=== PATIENT | male | born 1970 ===

== ENCOUNTER 2016-09-06 04:14 | Inpatient (IN) | payer MEDICAID ==
[2016-09-06] MEDS ORDERED: Sodium Chloride 0.9% 1,000 ML IV STA ×2 (04:49→08:39)
--- NOTE | 2016-09-06 05:04 | ED PDOC ---
HPI: Psych/Substance Abuse Time Seen by Provider: 09/06/16 04:27 Chief Complaint (Nursing): Chest Pain Chief Complaint (Provider): overdose History Per: Patient History/Exam Limitations: no limitations Onset/Duration Of Symptoms: Mins Current Symptoms Are (Timing): Still Present Additional Complaint(s): 45yo male with PMHx including psych issues presents to the ED for evaluation of drug overdose. Patient reports taking 4-5 cymbalta, a handful of eric aspirin ( believes was about 10) in the past hour. Patient states this was in reaction to having a fight with his girlfriend. Currently denies SI or HI. Admits to taking 2 gabapentin and 1 percocet earlier today. Denies any other drug or alcohol use. States he is currently having palpitations. Past Medical History Reviewed: Historical Data, Nursing Documentation, Vital Signs Vital Signs: Last Vital Signs Temp 98 F 09/06/16 04:20 Pulse 106 H 09/06/16 04:20 Resp 17 09/06/16 04:20 BP 137/74 09/06/16 04:20 Pulse Ox 100 09/06/16 04:20 - Medical History PMH: Depression Denies: Chronic Kidney Disease - Surgical History Surgical History: No Surg Hx - Family History Family History: States: No Known Family Hx - Immunization History Hx Tetanus Toxoid Vaccination: No Hx Influenza Vaccination: No Hx Pneumococcal Vaccination: No - Home Medications Home Medications: Ambulatory Orders Medication Instructions Recorded No Known Home Med 09/06/16 - Allergies Allergies/Adverse Reactions: Allergies Allergy/AdvReac Type Severity Reaction Status Date / Time No Known Allergies Allergy Verified 04/30/15 12:56 Review of Systems ROS Statement: Except As Marked, All Systems Reviewed And Found Negative Cardiovascular: Positive for: Palpitations Psych: Positive for: Other (no HI ). Negative for: Suicidal ideation Physical Exam - Reviewed Nursing Documentation Reviewed: Yes Vital Signs Reviewed: Yes - Physical Exam Appears: Positive for: Well, No Acute Distress (appears anxious ) Head Exam: Positive for: ATRAUMATIC, NORMAL INSPECTION, NORMOCEPHALIC Skin: Positive for: Normal Color, Warm, Dry Eye Exam: Positive for: Normal appearance, EOMI, PERRL ENT: Positive for: Normal ENT Inspection Neck: Positive for: Normal, Painless ROM, Supple Cardiovascular/Chest: Positive for: Regular Rate, Rhythm. Negative for: Murmur , Tachycardia Respiratory: Positive for: Normal Breath Sounds. Negative for: Wheezing, Respiratory Distress Gastrointestinal/Abdominal: Positive for: Normal Exam, Bowel Sounds, Soft. Negative for: Tenderness Back: Positive for: Normal Inspection Extremity: Positive for: Normal ROM. Negative for: Deformity, Swelling Neurologic/Psych: Positive for: Alert, Oriented - Laboratory Results Result Diagrams: 09/06/16 05:02 09/06/16 05:02 - ECG O2 Sat by Pulse Oximetry: 100 Pulse Ox Interpretation: Normal (RA) Medical Decision Making Medical Decision Makin: Impression: drug overdose Plan: Labs CXR IVF ED obs reassess 0700 will sign out to day team pending repeat labs and assessment Scribe Attestation: Documented by Diya López acting as a scribe for Donald Brownlee MD. Provider Scribe Attestation: All medical record entries made by the Scribe were at my direction and personally dictated by me. I have reviewed the chart and agree that the record accurately reflects my personal performance of the history, physical exam, medical decision making, and the department course for this patient. I have also personally directed, reviewed, and agree with the discharge instructions and disposition. Disposition - Clinical Impression Clinical Impression: Drug overdose, Salicylate intoxication - Disposition Disposition: Transfer of Care Disposition Time: 07:00 Condition: GUARDED Patient Signed Over To: Chasity Garrido Handoff Comments: reassessment, poison control recommendations, labs
[2016-09-06 05:07] LABS: BASO # 0.2 K/uL (0.0-0.2); BASO % 1.4 % (0.0-2.0); EOS # 0.1 K/uL (0.0-0.7); EOS % 0.3 % (0.0-4.0); HEMATOCRIT 47.7 % (35.0-51.0); LYMPH # 2.7 K/uL (1.0-4.3); LYMPH % 15.3 % (20.0-40.0); MEAN CELL VOLUME 95.8 fl (80.0-94.0); MEAN CORPUSCULAR HEMOGLOBIN 31.3 pg (27.0-31.0); MEAN CORPUSCULAR HGB CONC 32.7 g/dL (33.0-37.0); MEAN PLATELET VOLUME 10.2 fl (7.2-11.7); MONO # 1.2 K/uL (0.0-0.8); MONO % 6.8 % (0.0-10.0); NEUT # 13.3 K/uL (1.8-7.0); NEUT % 76.2 % (50.0-75.0); NRBC % 0.1 % (0.0-0.0); RED CELL DISTRIBUTION WIDTH 13.7 % (11.5-14.5); WHITE BLOOD COUNT 17.4 K/uL (4.8-10.8)
[2016-09-06 06:01] LABS: RBC URINE 1 /hpf (0-3); URINE BACTERIA RARE (<OCC); URINE BILIRUBIN NEGATIVE (NEGATIVE); URINE BLOOD NEGATIVE (NEGATIVE); URINE COLOR YELLOW (YELLOW); URINE GLUCOSE (UA) NEG (Normal); URINE KETONE NEGATIVE (NEGATIVE); URINE LEUKOCYTE ESTERASE NEG Leu/uL (Negative); URINE PROTEIN NEGATIVE (NEGATIVE); URINE UROBILINOGEN 0.2-1.0 mg/dL (0.2-1.0); WBC URINE 1 /hpf (0-5)
[2016-09-06 06:27] LABS: ABG ALLEN TEST YES; ARTERIAL BLOOD GAS HCO3 24.3 mmol/L (21-28); ARTERIAL BLOOD GAS PH 7.41 (7.35-7.45); ARTERIAL BLOOD GAS PO2 100 mm/Hg (80-100)
--- NOTE | 2016-09-06 07:32 | ED PDOC ---
- Laboratory Results Result Diagrams: 09/06/16 05:02 09/06/16 05:02 - ECG O2 Sat by Pulse Oximetry: 100 Medical Decision Making Medical Decision Makin signed over to me by Diya Brownlee MD pending repeat labs, reassessment. Patient on 1:1 observation. 0853: PATIENT IS AWAKE AND ALERT. HE IS ACTIVELY ENGAGED WITH THIS PHONE. PATIENT HAS PERSISTENTLY ELEVATED SALICYLATE LEVEL. POISON CONTROL FOLLOWING THE CASE AND MAKING RECOMMENDATIONS ON MANAGEMENT. D/W DR. LOPEZ. TELEMETRY MONITORING SUFFICIENT AT PRESENT. D/W DR. ROMAN FOR MEDICAL SERVICE ADMISSION. Disposition Doctor Will See Patient In The: Hospital - Clinical Impression Clinical Impression: Drug overdose, Salicylate intoxication - POA Present On Arrival: None - Disposition Disposition: Admitted as In-Patient Disposition Time: 08:55 Condition: GUARDED ED OBSERVATION Date of observation admission: 09/06/16 Time of observation admission: 04:27 Additional Comments - Additional Comments Additional Comments: Scribe Attestation: Documented by Dario Brooks acting as a scribe for Chasity Garrido MD. Provider Scribe Attestation: All medical record entries made by the Scribe were at my direction and personally dictated by me. I have reviewed the chart and agree that the record accurately reflects my personal performance of the history, physical exam, medical decision making, and the department course for this patient. I have also personally directed, reviewed, and agree with the discharge instructions and disposition.
[2016-09-06 07:47] LABS: ALCOHOL SERUM < 10 mg/dl (0-10); BLOOD UREA NITROGEN 6 mg/dl (9-20); CALCIUM 10.4 mg/dL (8.4-10.2); CARBON DIOXIDE 24 mmol/L (22-30); CHLORIDE 102 mmol/L (98-107); GFR AFRICAN-AMERICAN > 60; GLUCOSE,RANDOM 103 mg/dL (75-110); SODIUM 146 mmol/l (132-148)
--- NOTE | 2016-09-06 08:48 | RAD ---
PROCEDURE: CHEST RADIOGRAPH, 1 VIEW portable study 04:35. HISTORY: overdose COMPARISON: None available. FINDINGS: LUNGS: Clear. PLEURA: No pneumothorax or pleural fluid seen. CARDIOVASCULAR: Normal. OSSEOUS STRUCTURES: Mild scoliosis. No acute osseous findings. VISUALIZED UPPER ABDOMEN: Normal. OTHER FINDINGS: None. IMPRESSION: No active disease.
[2016-09-06 09:13] LABS: ALT/SGPT 28 U/L (21-72); AST/SGOT 33 U/L (17-59)
--- NOTE | 2016-09-06 13:28 | CP.PCM.HP ---
History of Present Illness - History of Present Illness History of Present Illness: 45Y/O M brought to ER [facility] by EMS due to Drug Overdose on DOA with no relief. Pt was brought to hospital and on evaluation was found with overdose of Salicylate, Cocaine, worsening symptom of Chest pressure L side, midsternal, non radiated associated to drug overdose, abdominal pain/nausea also related to the overdose. Aggravated factor: Stress. As per Pt, he took Gabapenting and 1 Percocet in AM, after fight , he took a handful of ASA and 4-5 Cymbalta 2nd to a fight reaction with his girlfriend, but denied SI or HI. Pt denied: Fever, chills, vomiting, diarrhea,SOB, cough, urinary symptoms, syncope, LOC, sick contact, recent travel. MHx: Depression, no other chronic PMHx. CXR: No active disease. Present on Admission - Present on Admission Any Indicators Present on Admission: No Review of Systems - Constitutional Constitutional: Other (Negative) - EENT Eyes: Other (negative) Ears: Other (negative) Nose/Mouth/Throat: Other (negative) - Cardiovascular Cardiovascular: Other (negative) - Respiratory Respiratory: Other (negative) - Gastrointestinal Gastrointestinal: Abdominal Pain, Nausea - Genitourinary Genitourinary: Other (negative) - Musculoskeletal Musculoskeletal: Other (negative) - Integumentary Integumentary: Other (negative) - Neurological Neurological: Other (negative) - Psychiatric Psychiatric: Depression - Endocrine Endocrine: Other (negative) - Hematologic/Lymphatic Hematologic: Other (negative) Past Patient History - Past Medical History & Family History Pertinent Family History: Unknown - Past Social History Smoking Status: Heavy Smoker > 10 Cigarettes Daily Alcohol: Social Drugs: Cocaine Home Situation {Lives}: With Family - CARDIAC Hx Cardiac Disorders: No - PULMONARY Hx Respiratory Disorders: No - NEUROLOGICAL Hx Neurological Disorder: No - HEENT Hx HEENT Problems: No - RENAL Hx Chronic Kidney Disease: No - ENDOCRINE/METABOLIC Hx Endocrine Disorders: No - HEMATOLOGICAL/ONCOLOGICAL Hx Blood Disorders: No - INTEGUMENTARY Hx Dermatological Problems: No - MUSCULOSKELETAL/RHEUMATOLOGICAL Hx Musculoskeletal Disorders: No - GASTROINTESTINAL Hx Gastrointestinal Disorders: No - GENITOURINARY/GYNECOLOGICAL Hx Genitourinary Disorders: No - PSYCHIATRIC Hx Psychophysiologic Disorder: Yes Hx Depression: Yes - SURGICAL HISTORY Hx Surgeries: Yes Other/Comment: 2005 gurmeet plate insertion left femur - ANESTHESIA Hx Anesthesia: Yes Hx Anesthesia Reactions: No Hx Malignant Hyperthermia: No Meds Allergies/Adverse Reactions: Allergies Allergy/AdvReac Type Severity Reaction Status Date / Time No Known Allergies Allergy Verified 04/30/15 12:56 Physical Exam - Constitutional Appears: No Acute Distress - Head Exam Head Exam: NORMAL INSPECTION - Eye Exam Eye Exam: PERRL - ENT Exam ENT Exam: Normal Oropharynx - Neck Exam Neck exam: Positive for: Normal Inspection - Respiratory Exam Respiratory Exam: NORMAL BREATHING PATTERN - Cardiovascular Exam Cardiovascular Exam: REGULAR RHYTHM - GI/Abdominal Exam GI & Abdominal Exam: Normal Bowel Sounds, Soft - Extremities Exam Extremities exam: Positive for: normal inspection - Back Exam Back exam: NORMAL INSPECTION - Neurological Exam Neurological exam: Alert, Oriented x3 Additional comments: No motor sensory deficit - Skin Skin Exam: Warm Results - Vital Signs Recent Vital Signs: Last Vital Signs Temp 97.7 F 09/06/16 12:20 Pulse 80 09/06/16 12:20 Resp 18 09/06/16 12:20 BP 127/82 09/06/16 12:20 Pulse Ox 99 09/06/16 12:20 reviewed J.P. - Labs Result Diagrams: 09/07/16 04:10 09/07/16 04:10 Labs: Laboratory Results - last 24 hr 09/06/16 10:14 Salicylates 38.9 H* reviewed J.P. - Imaging and Cardiology Chest x-ray Status: Report reviewed by me (Kassidy) Assessment & Plan (1) Drug overdose Status: Acute Priority: High (2) Salicylate intoxication Status: Acute Priority: High - Assessment and Plan (Free Text) Plan: Blood C-S, continue Fluid IV, on 1:1 observation, Psychiatric consult. - Date & Time Date: 09/06/16 Time: 12:00
[2016-09-06] MEDS ORDERED: Pneumococcal 23-Valent Vaccine IM ONE (14:20)
[2016-09-06 14:41] LABS: THYROID STIMULATING HORMONE 0.03 mIU/ML (0.46-4.68)
[2016-09-06] MEDS: Sodium Chloride 0.9% 1,000 ML IV SCH ×2 (16:55→22:49)
[2016-09-07 05:28] LABS: HEMATOCRIT 40.5 % (35.0-51.0); MEAN CELL VOLUME 96.5 fl (80.0-94.0); MEAN CORPUSCULAR HGB CONC 32.2 g/dL (33.0-37.0); WHITE BLOOD COUNT 10.3 K/uL (4.8-10.8)
[2016-09-07 05:47] LABS: BLOOD UREA NITROGEN 13 mg/dl (9-20); CALCIUM 8.7 mg/dL (8.4-10.2); CARBON DIOXIDE 23 mmol/L (22-30); CHLORIDE 109 mmol/L (98-107); GFR AFRICAN-AMERICAN > 60; GLUCOSE,RANDOM 83 mg/dL (75-110); POTASSIUM 3.8 MMOL/L (3.6-5.0); SODIUM 145 mmol/l (132-148)
[2016-09-07] MEDS: Sodium Chloride 0.9% 1,000 ML IV SCH (08:42)
--- NOTE | 2016-09-07 12:40 | CP.PCM.PN ---
Subjective - Date & Time of Evaluation Date of Evaluation: 09/07/16 Time of Evaluation: 11:00 - Subjective Subjective: F/U Drug Overdose. Pt awake, no A/D noted, Ox3, calm, on 1:1. Objective - Vital Signs/Intake and Output Vital Signs (last 24 hours): Temp Pulse Resp BP Pulse Ox 98.2 F 53 L 18 136/77 98 09/07/16 08:00 09/07/16 09:00 09/07/16 08:00 09/07/16 08:00 09/07/16 08:00 - Labs Labs: 09/07/16 04:10 09/07/16 04:10 - Constitutional Appears: No Acute Distress - Head Exam Head Exam: NORMAL INSPECTION - Eye Exam Eye Exam: PERRL - ENT Exam ENT Exam: Normal Oropharynx - Neck Exam Neck Exam: Normal Inspection - Respiratory Exam Respiratory Exam: NORMAL BREATHING PATTERN - Cardiovascular Exam Cardiovascular Exam: REGULAR RHYTHM - GI/Abdominal Exam GI & Abdominal Exam: Soft, Normal Bowel Sounds - Extremities Exam Extremities Exam: Normal Inspection - Back Exam Back Exam: NORMAL INSPECTION - Neurological Exam Neurological Exam: Alert, Oriented x3. absent: Motor Sensory Deficit - Psychiatric Exam Additional comments: Calm - Skin Skin Exam: Warm Assessment and Plan (1) Drug overdose Status: Acute (2) Salicylate intoxication Status: Acute - Assessment and Plan (Free Text) Plan: Continue IV fluid.
--- NOTE | 2016-09-07 14:25 | CP.PCM.CON ---
History of Present Illness - History of Present Illness History of Present Illness: Psychiatry consult was called for evaluation of overdose CC: "I took some pills" HPI: 45 yo male w/ no h/o formal psychiatric treatment, presents s/p drug overdose on salicylate, cocaine, cymbalta (not his medication), gabapentin and percocet after having an argument with his gf. Patient is now denying that it was a suicide attempt, denying depression/anxiety/azucena/hallucinations/delusions /paranoia. As per staff, his gf reported that this is not his first overdose. ROS: NO Fever, chills, vomiting, diarrhea,SOB, cough, urinary symptoms, syncope , LOC, sick contact, recent travel. PPHX: No h/o hospitalizations or current treatment. He used Klonopin a few years ago, but this was not prescribed by a psychiatrist. Patient denies previous suicide attempts. MHx: No medical problems CXR: No active disease. 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 Denied substance/etoh abuse to freelance writer. (Utox + cocaine) Lives w/ gf. MSE: A + O x3, no acute distress, poor eye contact, irritable towards freelance writer, mood "fine". affect- labile, irritable, angry. thought process-linear/coherent. speech normal. NO delusions/paranoia/hallucinations. I/J- poor. Impression: 45 yo male who denies past psychiatric history, presents s/p overdose, likely suicide attempt, although patient now refuses it was. Patient has mood disorder, unspecified r/o substance induced mood disorder, cocaine use disorder. Patient would benefit from inpatient psychiatric admission for treatment and safety but is not agreeable at this time. Recommendations: -Screen for involuntary admission as the patient is not agreeable to voluntary admission. -Continue 1:1 -Call w/ further questions, Dr. Burrell [phone] Past Patient History - Past Medical History & Family History Past Medical History?: Yes - Past Social History Smoking Status: Heavy Smoker > 10 Cigarettes Daily Alcohol: Social Drugs: Cocaine Home Situation {Lives}: With Family - CARDIAC Hx Cardiac Disorders: No - PULMONARY Hx Respiratory Disorders: No - NEUROLOGICAL Hx Neurological Disorder: No - HEENT Hx HEENT Problems: No - RENAL Hx Chronic Kidney Disease: No - ENDOCRINE/METABOLIC Hx Endocrine Disorders: No - HEMATOLOGICAL/ONCOLOGICAL Hx Blood Disorders: No - INTEGUMENTARY Hx Dermatological Problems: No - MUSCULOSKELETAL/RHEUMATOLOGICAL Hx Musculoskeletal Disorders: No - GASTROINTESTINAL Hx Gastrointestinal Disorders: No - GENITOURINARY/GYNECOLOGICAL Hx Genitourinary Disorders: No - PSYCHIATRIC Hx Depression: Yes - SURGICAL HISTORY Hx Surgeries: Yes Other/Comment: 2006 gurmeet plate insertion left femur - ANESTHESIA Hx Anesthesia: Yes Hx Anesthesia Reactions: No Hx Malignant Hyperthermia: No Meds Allergies/Adverse Reactions: Allergies Allergy/AdvReac Type Severity Reaction Status Date / Time No Known Allergies Allergy Verified 04/30/15 12:56 Results - Vital Signs Recent Vital Signs: Last Vital Signs Temp 97.6 F 09/07/16 12:00 Pulse 62 09/07/16 12:00 Resp 18 09/07/16 12:00 BP 132/81 09/07/16 12:00 Pulse Ox 96 09/07/16 12:00 - Labs Result Diagrams: 09/07/16 04:10 09/07/16 04:10 Labs: Laboratory Results - last 24 hr 09/06/16 09/06/16 09/07/16 13:45 19:20 04:10 WBC 10.3 RBC 4.20 L Hgb 13.0 D Hct 40.5 MCV 96.5 H MCH 31.0 MCHC 32.2 L RDW 14.0 Plt Count 269 Sodium 145 Potassium 3.8 Chloride 109 H Carbon Dioxide 23 Anion Gap 17 BUN 13 Creatinine 0.9 Est GFR ( Amer) > 60 Est GFR (Non-Af Amer) > 60 Random Glucose 83 Calcium 8.7 Troponin I < 0.0120 TSH 3rd Generation 0.03 L Salicylates 31.9 H* 28.3
--- NOTE | 2016-09-08 13:07 | CP.PCM.PN ---
Subjective - Subjective Subjective: calm , on 1:1 , answer questions slowly Objective - Vital Signs/Intake and Output Vital Signs (last 24 hours): Temp Pulse Resp BP Pulse Ox 97.9 F 58 L 18 137/88 98 09/08/16 12:25 09/08/16 12:25 09/08/16 12:25 09/08/16 12:25 09/08/16 12:25 Intake and Output: 09/08/16 09/08/16 06:59 18:59 Output Total 150 Balance -150 - Labs Labs: 09/07/16 04:10 09/07/16 04:10 - Constitutional Appears: No Acute Distress - Head Exam Head Exam: NORMAL INSPECTION - Eye Exam Eye Exam: PERRL - ENT Exam ENT Exam: Normal External Ear Exam - Neck Exam Neck Exam: Normal Inspection - Respiratory Exam Respiratory Exam: Clear to Ausculation Bilateral, NORMAL BREATHING PATTERN - Cardiovascular Exam Cardiovascular Exam: REGULAR RHYTHM - GI/Abdominal Exam GI & Abdominal Exam: Soft, Normal Bowel Sounds - Extremities Exam Extremities Exam: Normal Inspection - Back Exam Back Exam: NORMAL INSPECTION - Neurological Exam Neurological Exam: Awake (no focal motor sensory deficit) - Psychiatric Exam Psychiatric exam: Flat Affect - Skin Skin Exam: Warm Assessment and Plan (1) Drug overdose Status: Acute (2) Salicylate intoxication Status: Acute - Assessment and Plan (Free Text) Assessment: s/p overdose , likely sucide attempt Plan: Psychiatric consult appreciated , continue 1:1 , screen for involuntary Psychiatric admission if Patient refuses voluntary Psychiatric admission
--- NOTE | 2016-09-08 18:25 | CARD ---
APPROVED REPORT EKG Measurement Heart [id number] SC [id number] <Conclusion> Sinus tachycardia Otherwise normal ECG
[2016-09-09 12:36] LABS: HEMATOCRIT 41.2 % (35.0-51.0); MEAN CELL VOLUME 95.4 fl (80.0-94.0); MEAN CORPUSCULAR HEMOGLOBIN 31.7 pg (27.0-31.0); MEAN CORPUSCULAR HGB CONC 33.2 g/dL (33.0-37.0); RED CELL DISTRIBUTION WIDTH 13.8 % (11.5-14.5); WHITE BLOOD COUNT 10.4 K/uL (4.8-10.8)
[2016-09-09] MEDS ORDERED: Alum-Mag Hydrox-Simethicone Susp (30 mL) PO PRN (16:08)
[2016-09-09] MEDS ORDERED: Pantoprazole 40 mg EC Tab PO SCH (16:15)
--- NOTE | 2016-09-09 17:13 | CP.PCM.PN ---
Subjective - Date & Time of Evaluation Date of Evaluation: 09/09/16 Time of Evaluation: 15:10 - Subjective Subjective: F/U Drug overdose. Pt calm, answering question, on 1:1. Objective - Vital Signs/Intake and Output Vital Signs (last 24 hours): Temp Pulse Resp BP Pulse Ox 98.4 F 66 18 125/71 97 09/09/16 16:30 09/09/16 16:30 09/09/16 16:30 09/09/16 16:30 09/09/16 16:30 - Medications Medications: Current Medications Al Hydrox/Mg Hydrox/Simethicone (Maalox Plus 30 Ml) 30 ml PO Q4 PRN PRN Reason: Indigestion / Heartburn Last Admin: 09/09/16 16:22 Dose: 30 ml Nicotine (Nicoderm Cq) 1 patch TD DAILY [facility] Last Admin: 09/09/16 09:07 Dose: 1 patch Pantoprazole Sodium (Protonix Ec Tab) 40 mg PO DAILY [facility] Last Admin: 09/09/16 16:22 Dose: 40 mg - Labs Labs: 09/09/16 12:10 09/07/16 04:10 - Constitutional Appears: No Acute Distress - Head Exam Head Exam: NORMAL INSPECTION - Eye Exam Eye Exam: PERRL - ENT Exam ENT Exam: Normal Oropharynx - Neck Exam Neck Exam: Normal Inspection - Respiratory Exam Respiratory Exam: NORMAL BREATHING PATTERN - Cardiovascular Exam Cardiovascular Exam: REGULAR RHYTHM - GI/Abdominal Exam GI & Abdominal Exam: Soft, Normal Bowel Sounds - Extremities Exam Extremities Exam: Normal Inspection - Back Exam Back Exam: NORMAL INSPECTION - Neurological Exam Neurological Exam: Alert, Oriented x3. absent: Motor Sensory Deficit - Psychiatric Exam Additional comments: Calm - Skin Skin Exam: Warm Assessment and Plan (1) Drug overdose Status: Acute (2) Salicylate intoxication Status: Acute - Assessment and Plan (Free Text) Plan: Social Service working for transfer Pt for involuntary Psychiatric admission to [facility] [place].
[2016-09-09 20:03] VITALS: BP 120/78; PULSE 75; RESP 16; TEMP 98.5; O2SAT 98
--- NOTE | 2016-09-14 10:57 | CP.PCM.DIS ---
Provider - Provider Date of Admission: 09/06/16 08:55 Attending physician: Rodney Truong MD Consults: Psychiatry. Time Spent in preparation of Discharge (in minutes): 25 Diagnosis - Discharge Diagnosis (1) Drug overdose Status: Acute Priority: High (2) Salicylate intoxication Status: Acute Priority: High Hospital Course - Lab Results Lab Results: Micro Results 09/06/16 15:00 Blood-Venous Blood Culture - Final NO GROWTH AFTER 5 DAYS 09/06/16 15:00 Blood-Venous Gram Stain - Final TEST NOT PERFORMED Most Recent Lab Values WBC 10.4 K/uL (4.8-10.8) 09/09/16 12:10 RBC 4.32 Mil/uL (4.40-5.90) L 09/09/16 12:10 Hgb 13.7 g/dL (12.0-18.0) 09/09/16 12:10 Hct 41.2 % (35.0-51.0) 09/09/16 12:10 MCV 95.4 fl (80.0-94.0) H 09/09/16 12:10 MCH 31.7 pg (27.0-31.0) H 09/09/16 12:10 MCHC 33.2 g/dL (33.0-37.0) 09/09/16 12:10 RDW 13.8 % (11.5-14.5) 09/09/16 12:10 Plt Count 291 K/uL (130-400) 09/09/16 12:10 MPV 10.2 fl (7.2-11.7) 09/06/16 05:02 Neut % (Auto) 76.2 % (50.0-75.0) H 09/06/16 05:02 Lymph % (Auto) 15.3 % (20.0-40.0) L 09/06/16 05:02 [place] % (Auto) 6.8 % (0.0-10.0) 09/06/16 05:02 Eos % (Auto) 0.3 % (0.0-4.0) 09/06/16 05:02 Baso % (Auto) 1.4 % (0.0-2.0) 09/06/16 05:02 Neut # 13.3 K/uL (1.8-7.0) H 09/06/16 05:02 Lymph # 2.7 K/uL (1.0-4.3) 09/06/16 05:02 [place] # 1.2 K/uL (0.0-0.8) H 09/06/16 05:02 Eos # 0.1 K/uL (0.0-0.7) 09/06/16 05:02 Baso # 0.2 K/uL (0.0-0.2) 09/06/16 05:02 pCO2 37 mm/Hg (35-45) 09/06/16 06:20 pO2 100 mm/Hg (80-100) 09/06/16 06:20 HCO3 24.3 mmol/L (21-28) 09/06/16 06:20 ABG pH 7.41 (7.35-7.45) 09/06/16 06:20 ABG Total CO2 24.6 mmol/L (22-28) 09/06/16 06:20 ABG O2 Saturation 99.4 % (95-98) H 09/06/16 06:20 ABG Base Excess -0.8 mmol/L (-2.0-3.0) 09/06/16 06:20 Jakob Test Yes 09/06/16 06:20 ABG Potassium 3.9 mmol/L (3.6-5.2) 09/06/16 06:20 A-a O2 Difference 3.0 mm/Hg 09/06/16 06:20 Sodium 139.0 mmol/L (132-148) 09/06/16 06:20 Chloride 111.0 mmol/L (98-107) H 09/06/16 06:20 Glucose 114 mg/dL (75-110) H 09/06/16 06:20 Lactate 1.0 mmol/L (0.7-2.1) 09/06/16 06:20 FiO2 21.0 % 09/06/16 06:20 Crit Value Called By 333 09/06/16 06:20 Blood Gas Notified Time 625 09/06/16 06:20 Sodium 145 mmol/l (132-148) 09/07/16 04:10 Potassium 3.8 MMOL/L (3.6-5.0) 09/07/16 04:10 Chloride 109 mmol/L (98-107) H 09/07/16 04:10 Carbon Dioxide 23 mmol/L (22-30) 09/07/16 04:10 Anion Gap 17 (10-20) 09/07/16 04:10 BUN 13 mg/dl (9-20) 09/07/16 04:10 Creatinine 0.9 mg/dL (0.8-1.5) 09/07/16 04:10 Est GFR ( Amer) > 60 09/07/16 04:10 Est GFR (Non-Af Amer) > 60 09/07/16 04:10 Random Glucose 83 mg/dL (75-110) 09/07/16 04:10 Calcium 8.7 mg/dL (8.4-10.2) 09/07/16 04:10 AST 33 U/L (17-59) 09/06/16 05:02 ALT 28 U/L (21-72) 09/06/16 05:02 Troponin I < 0.0120 ng/mL (0.00-0.120) 09/06/16 13:45 TSH 3rd Generation 0.03 mIU/ML (0.46-4.68) L 09/06/16 13:45 Arterial Blood Potassium 3.9 mmol/L (3.6-5.2) 09/06/16 06:20 Urine Color Yellow (YELLOW) 09/06/16 04:34 Urine Clarity Clear (Clear) 09/06/16 04:34 Urine pH 6.0 (5.0-8.0) 09/06/16 04:34 Ur Specific [place] 1.009 (1.003-1.030) 09/06/16 04:34 Urine Protein Negative mg/dL (NEGATIVE) 09/06/16 04:34 Urine Glucose (UA) Neg mg/dL (Normal) 09/06/16 04:34 Urine Ketones Negative mg/dL (NEGATIVE) 09/06/16 04:34 Urine Blood Negative (NEGATIVE) 09/06/16 04:34 Urine Nitrate Negative (NEGATIVE) 09/06/16 04:34 Urine Bilirubin Negative (NEGATIVE) 09/06/16 04:34 Urine Urobilinogen 0.2-1.0 mg/dL (0.2-1.0) 09/06/16 04:34 Ur Leukocyte Esterase Neg [place]/uL (Negative) 09/06/16 04:34 Urine RBC (Auto) 1 /hpf (0-3) 09/06/16 04:34 Urine Microscopic WBC 1 /hpf (0-5) 09/06/16 04:34 Urine Bacteria Rare (<OCC) 09/06/16 04:34 Salicylates 3.6 mg/dl 09/08/16 05:55 Urine Opiates Screen Negative (NEGATIVE) 09/06/16 04:34 Urine Methadone Screen Negative (NEGATIVE) 09/06/16 04:34 Acetaminophen < 10.0 ug/ml (10.0-30.0) L 09/06/16 05:02 Ur Barbiturates Screen Negative (NEGATIVE) 09/06/16 04:34 Ur Phencyclidine Scrn Negative (NEGATIVE) 09/06/16 04:34 Ur Amphetamines Screen Negative (NEGATIVE) 09/06/16 04:34 U Benzodiazepines Scrn Negative (NEGATIVE) 09/06/16 04:34 U Oth Cocaine Metabols Positive (NEGATIVE) H 09/06/16 04:34 U Cannabinoids Screen Negative (NEGATIVE) 09/06/16 04:34 Alcohol, Quantitative < 10 mg/dl (0-10) 09/06/16 05:02 - Date & Time of H&P Date of H&P: 09/06/16 Time of H&P: 12:00 Discharge Exam - Head Exam Head Exam: NORMAL INSPECTION Discharge Plan - Follow Up Plan Condition: GUARDED Disposition: Trans to Other Acute Care Hosp Additional Instructions: ACTIVITY TOLERATED. SUICIDAL PRECAUTION . REGULAR DIET.
== END 2016-09-09 21:20 | disposition short-term general hospital (02) | DRG 450 ==
LOC: H.ER 04:14 → H.EROBSV 04:27 → OBSVTOIN 08:55 → H.ERHOLD 08:55 → H.TEL 11:06
PROVIDERS: ADMIT Internal Medicine Pulmonary Disease; ATTEND Internal Medicine Pulmonary Disease
DX: T39.012A Poisoning by aspirin, intentional self-harm, initial encounter (principal); F32.9 Major depressive disorder, single episode, unspecified; Z87.891 Personal history of nicotine dependence; Y92.9 Unspecified place or not applicable